=== PATIENT | female | born 1965 | race Caucasian/White ===

== ENCOUNTER → 2017-05-25 | Outpatient (CLI) | payer OTHER ==
[~2017-05-25] MED LIST: ADDERALL 30 MG30 MG PO; KLONOPIN0.5 MG PO; LOSARTAN-HCTZ1 EAC1 PO; PROPRANOLOL HCL20 MG PO
--- NOTE | 2017-05-25 09:20 | Diagnostic Imaging Report ---
MRI of the left foot without contrast. History: Foot pain. Decreased range of motion. Pain not responding to conservative management. Pain worse with walking. Chronic pain. Technique: Multiplanar multisequence MRI of the foot without contrast Comparison: None Findings: No acute fracture, dislocation or evidence of avascular necrosis. Scattered degenerative changes are seen most pronounced at the first metatarsophalangeal joint. There is associated joint space loss, subchondral cystic change and a small joint effusion/synovitis at the first metatarsophalangeal joint. This is best seen on series 6 image 16 through 18. No ligamentous or tendon tear is seen. The visualized muscles are normal in size, signal intensity and morphology. The visualized neurovascular bundles are intact. There is a small tibiotalar joint effusion and mild synovitis. Impression: Scattered degenerative changes are seen most pronounced at the first metatarsophalangeal joint. Signed by: Dr. Janes Keenan M.D. on 05/25/2017 9:16 AM
== END ==
LOC: MRI 07:43
PROVIDERS: ATTEND Physical Medicine & Rehabilitation Pain Medicine
DX: M79.672 Pain in left foot (principal)